=== PATIENT | male | born 1950 | race Caucasian/White ===

== ENCOUNTER 2017-02-21 17:38 | Emergency (ER) | payer OTHER ==
[~2017-02-21] VITALS: Ht 152.4 cm; Wt 72.6 kg
[2017-02-21 18:19] VITALS: BP 124/76
--- NOTE | 2017-02-21 22:18 | NUR ---
pt upset regarding ibuprofen prescription, verbally abusive, refuse to sing aci.
== END 2017-02-21 22:20 | disposition home or self-care (01) ==
LOC: ER 17:40
DX: M54.2 Cervicalgia (principal); G89.29 Other chronic pain; M54.9 Dorsalgia, unspecified
CPT/HCPCS: 99282; A4606; Z7610